=== PATIENT | female | born 1955 | race Caucasian/White ===

== ENCOUNTER 2018-05-18 03:32 | Emergency (ER) | payer MEDICARE ==
[2018-05-18] MEDS ORDERED: XYLOCAINE 2% HCL 20 ML MDV IJ ONE (03:48)
[2018-05-18] MEDS ORDERED: XYLOCAINE 2% HCL 20 ML MDV ONE (03:50)
--- NOTE | 2018-05-18 03:53 | ERPHSYRPT ---
- History of Present Illness Time Seen by Provider: 05/18/18 03:49 Source: patient Exam Limitations: no limitations Patient Subjective Stated Complaint: pt states she thinks a bug flew in her ear and she is having pain. Triage Nursing Assessment: pt alert and oriented, answers questions approp. pt ambulatory with rolling walker- steady gait. respirations nonlabored with lungs cta. insect noted in ear canal Physician History: 62-year-old white female arrives with complaint of a sensation of a bug in her left ear symptoms since just prior to arrival. According to patient she was getting ready for bed when a bug flew into her left ear she states she rinsed the left ear however she was unable to get the bug out of her ear. She states she feels like the bug is moving around in her left ear. Past medical history includes polio. Past surgical history includes bariatric surgery, knee replacement, hip surgery shoulder surgery. Social history patient denies tobacco alcohol or illicit drug use. Timing/Duration: today (3:00) Severity: moderate Modifying Factors: Improves With: nothing Associated Symptoms: No nausea, No vomiting, No abdominal pain, No shortness of breath, No heartburn, No diaphoresis, No cough, No chills, No chest pain, No fever, No headaches, No loss of appetite, No malaise, No rash, No syncope, No seizure (we'll just fill the ear ), No weakness Allergies/Adverse Reactions: cephalexin [From Keflex] Allergy (Verified 05/18/18 03:54) Rash clindamycin Allergy (Verified 05/18/18 03:54) Rash Home Medications: Aspirin EC 81 mg [Ecotrin 81 mg] 81 mg PO DAILY 05/18/18 [History] Hx Tetanus, Diphtheria Vaccination/Date Given: No Hx Influenza Vaccination/Date Given: No Hx Pneumococcal Vaccination/Date Given: No Immunizations Up to Date: No - Review of Systems Constitutional: No Fever, No Chills Eyes: No Symptoms Ears, Nose, & Throat: Ear Pain, Other (foreign-body sensation l ear possible insect), No Ear Discharge, No Hearing Changes, No Tinnitus, No Nose Pain, No Nose Congestion, No Nose Discharge, No Sinus Drainage, No Epistaxis, No Mouth Pain, No Mouth Swelling, No Loose Teeth, No Throat Pain, No Throat Swelling, No Hoarse, No Painful Swallowing, No Snoring, No Stridor Respiratory: No Cough, No Dyspnea Cardiac: No Chest Pain, No Edema, No Syncope Abdominal/Gastrointestinal: No Abdominal Pain, No Nausea, No Vomiting, No Diarrhea Genitourinary Symptoms: No Dysuria Musculoskeletal: No Back Pain, No Neck Pain Skin: No Rash Neurological: No Dizziness, No Focal Weakness, No Sensory Changes Psychological: No Symptoms Endocrine: No Symptoms All Other Systems: Reviewed and Negative - Past Medical History Pertinent Past Medical History: Yes Neurological History: Other Cardiac History: Hypertension - Past Surgical History Past Surgical History: Yes Musculoskeletal: Joint Replacement Female Surgical History: Hysterectomy Other Surgical History: bariatric surgery, bilat shoulder, knees, hips. lumbar lami, - Social History Smoking Status: Never smoker Exposure to second hand smoke: Yes Drug Use: none Patient Lives Alone: No - Nursing Vital Signs Nursing Vital Signs: Initial Vital Signs Temperature 97.8 F 05/18/18 03:37 Pulse Rate 104 H 05/18/18 03:37 Respiratory Rate 18 05/18/18 03:37 Blood Pressure 172/93 05/18/18 03:37 O2 Sat by Pulse Oximetry 97 05/18/18 03:37 Pain Scale Pain Intensity 7 - Physical Exam General Appearance: no apparent distress, alert Eye Exam: PERRL/EOMI, eyes nml inspection Ears, Nose, Throat Exam: other ( foreign body left ear, possible insect) Neck Exam: normal inspection, non-tender, supple, full range of motion Respiratory Exam: normal breath sounds, lungs clear, No respiratory distress Cardiovascular Exam: regular rate/rhythm (That he retired), normal heart sounds , normal peripheral pulses Gastrointestinal/Abdomen Exam: soft, normal bowel sounds, No tenderness, No mass Back Exam: normal inspection (socks), normal range of motion, No CVA tenderness , No vertebral tenderness Extremity Exam: normal inspection, normal range of motion, pelvis stable Neurologic Exam: alert, oriented x 3, cooperative, normal mood/affect, nml cerebellar function, nml station & gait, sensation nml, No motor deficits Skin Exam: normal color, warm, dry, No rash Lymphatic Exam: No adenopathy SpO2 Interpretation: normal (9he is disabled his Kefl7%) SpO2: 97 Oxygen Delivery: Room Air Ordered Tests: Medication Summary Discontinued Medications Generic Name Dose Route Start Last Admin Trade Name Freq PRN Reason Stop Dose Admin Lidocaine HCl 5 ml 05/18/18 03:48 05/18/18 03:54 Xylocaine 2% Hcl 20 Ml Mdv IJ 05/18/18 03:49 5 ml STAT ONE Administration Lidocaine HCl Confirm 05/18/18 03:50 Xylocaine 2% Hcl 20 Ml Mdv Administered 05/18/18 03:51 Dose 20 ml .ROUTE .STK-MED ONE Ofloxacin 5 ml 05/18/18 04:33 Floxin Otic 5 Ml OT 05/18/18 04:34 STAT ONE Ofloxacin Confirm 05/18/18 04:35 Ocuflox Ophthalmic 5 Ml Administered 05/18/18 04:36 Dose 5 ml OP .STK-MED ONE - Progress Progress: improved Progress Note: 05/18/18 04:29 This is a 62-year-old white female arrives with complaint of an insect in her left ear for since 3:00's morning she states that it fluid into her ear when she was preparing to go to bed. She states she tried to flush the insect out with water unsuccessfully. On examination patient indeed does have an insect in her left ear canal. I instilled the 2% lidocaine into the patient's left ear which killed the insect. Nurses tried to irrigate the left ear to remove the insect several parts came out however the insect did not come completely out. We also tried to use suction to remove the insect the patient had discomfort with this therefore we stopped. Will go ahead and place patient on Floxin eardrops And have patient contact Dr. Mandujano at [facility]) to arrange follow-upand removal of insect in her left ear canal. She may alternatively follow-up with her family doctor. - Departure Time of Disposition: 04:36 Departure Disposition: Home Clinical Impression: insect in left ear canal Foreign body in left ear Qualifiers: Encounter type: initial encounter Qualified Code(s): T16.2XXA - Foreign body in left ear, initial encounter Condition: Fair Critical Care Time: No Referrals: Provider,Unknown [Primary Care Provider] - Additional Instructions: Return home. Floxin otic drops 4 drops in the left ear twice a day for 5 days. Follow-up with Dr. Mandujano ( [facility] clinic) [phone]. Or your family doctor. Call in the morning to schedule follow-up appointment and possible removal of insect in your left ear. Return for acute distress or for severe symptoms.
[2018-05-18] MEDS ORDERED: Floxin Otic 5 ML OT ONE (04:33)
[2018-05-18] MEDS ORDERED: Ocuflox OPHTHALMIC 5 ML OP ONE (04:35)
[2018-05-18 05:14] VITALS: BP 133/84; PULSE 98; O2SAT 99
== END 2018-05-18 05:14 | disposition home or self-care (01) ==
LOC: ED 03:32
DX: T16.2XXA Foreign body in left ear, initial encounter (principal)
CPT/HCPCS: 99283; A9270-GY